=== PATIENT | female | born 1985 | race Two or more races ===

== ENCOUNTER 2025-05-04 14:07 | Emergency (ER) | payer MEDICAID, SELFPAY ==
[2025-05-04 14:25] VITALS: PULSE 86; O2SAT 98
[2025-05-04 14:37] VITALS: BP 115/81; PULSE 120; RESP 18; TEMP 37.1; O2SAT 96
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
[2025-05-04] MEDS: IBUPROFEN TAB 400 MG TABLET 800 MG PO (15:25)
== END 2025-05-04 15:28 | disposition home or self-care (01) ==
PROVIDERS: Emergency Provider Family Medicine
DX: S10.93XA Contusion of unspecified part of neck, initial encounter (principal); V49.40XA Driver injured in collision with unspecified motor vehicles in traffic accident, initial encounter
CPT/HCPCS: 99282; A9270